=== PATIENT | male | born 1955 | race Asian ===

== ENCOUNTER 2019-01-26 08:16 | Day surgery (SDC) | payer OTHER ==
[2019-01-26] MEDS ORDERED: NACL 0.9% 1000 ML 1,000 ML IV SCH (10:00)
--- NOTE | 2019-01-26 10:42 | Anesthesia Consultation ---
Anesthesia Consult and Med Hx Date of service: 01/26/19 - Airway Anesthetic Teeth Evaluation: Good ROM Head & Neck: Adequate Mental/Hyoid Distance: Adequate Mallampati Class: Class II Intubation Access Assessment: Probably Good - Pulmonary Exam CTA: Yes - Cardiac Exam Cardiac Exam: RRR - Pre-Operative Health Status ASA Pre-Surgery Classification: ASA2 Proposed Anesthetic Plan: MAC - Pulmonary Hx Smoking: No - Cardiovascular System Hx Hypertension: Yes Hx Heart Attack/AMI: No - Central Nervous System CVA: No - Endocrine Hx Renal Disease: No Hx Liver Disease: No Hx Insulin Dependent Diabetes: No Hx Non-Insulin Dependent Diabetes: No - Other Systems Hx Obesity: No
--- NOTE | 2019-01-26 10:42 | Anesthesia Day of Surgery ---
Anesthesia Day of Surgery - Day of Surgery Patient Examined: Yes Patient H&P Reviewed: Yes Patient is NPO: Yes
[2019-01-26] MEDS ORDERED: DIPRIVAN 10 MG/ML IV ONE ×2 (11:31)
--- NOTE | 2019-01-26 12:00 | Procedure Note ---
Date of procedure: 01/26/19 Pre-op diagnosis: Colon Polyp Screening Post-op diagnosis: other (No Colon Polyps noted/Minor,Left Colon Diverticuli/ Minor,Internal Hemorrhoid) Procedure: Colonoscopy Anesthesia: MAC Surgeon: GERMAIN ROY Estimated blood loss: none Pathology: none Condition: stable Disposition: no change (Resume home medication,encourage fiber supplements and follow up in 1 to 2 weeks ([phone]).)
[2019-01-26] MEDS ORDERED: XYLOCAINE MPF 2% ONE (12:30)
[2019-01-26 12:41] VITALS: BP 126/72
--- NOTE | 2019-01-26 15:11 | Operative Report ---
PROCEDURE: Colonoscopy. Thank you for the kind referral. INDICATIONS: This is a 64-year-old [place] gentleman originally from [place], who has an underlying history of hypertension and hyperlipidemia. Colonoscopy was done as part of colon polyp screening. DESCRIPTION OF PROCEDURE: Procedure was done after getting informed consent with MAC anesthesia. Initial rectal exam was unremarkable. Instrument was passed through the rectum onto the cecum, which was identified with ileocecal valve and the appendiceal orifice. Visualization was fair to good. The cecum was visualized also on the retroverted view, which did not show any additional pathology. Cecum, ascending colon, transverse colon, descending colon, and sigmoid showed normal mucosa other than for a few minor diverticula noted in the left colon, and the rectum showed some minor internal hemorrhoid on the retroverted view. There were no biopsies done. There was no bleeding associated with the procedure. No complications associated with the procedure. ASSESSMENT: Colon polyp screening, no colon polyps noted. Minor left colon diverticula, minor internal hemorrhoid. The patient will be encouraged to take fiber supplements. Resume home medication and followup in the office in 1-2 weeks' time. The patient's procedure was done in the GI lab with assistance of the GI lab team, which included RN, Shanel Elias as well as Deirdre arteaga and with the assistance of anesthesia. JOB# [id number]
== END 2019-01-26 08:17 | disposition home or self-care (01) ==
LOC: GIO 08:16
DX: Z12.11 Encounter for screening for malignant neoplasm of colon (principal); K57.30 Diverticulosis of large intestine without perforation or abscess without bleeding; K64.8 Other hemorrhoids; I10 Essential (primary) hypertension; E78.00 Pure hypercholesterolemia, unspecified; Z88.0 Allergy status to penicillin; Z79.899 Other long term (current) drug therapy
CPT/HCPCS: 45378; J2704; J7030